=== PATIENT | male | born 1975 | race Asian ===

== ENCOUNTER 2017-01-17 21:56 | Emergency (ER) | payer MEDICAID ==
[2017-01-17 22:19] VITALS: BP 143/80
== END 2017-01-17 23:20 | disposition home or self-care (01) ==
LOC: ED 21:56
DX: S93.402A Sprain of unspecified ligament of left ankle, initial encounter (principal); X58.XXXA Exposure to other specified factors, initial encounter; Y93.89 Activity, other specified; Y99.8 Other external cause status; Y92.89 Other specified places as the place of occurrence of the external cause